=== PATIENT | female | born 1985 | race Two or more races ===

== ENCOUNTER → 2017-05-15 | Emergency (ER) | payer SELFPAY ==
[~2017-05-15] MED LIST: PREN-153 OR
== END | disposition left against medical advice (07) ==
LOC: ER 23:48
DX: R10.9 Unspecified abdominal pain (principal); Z53.21 Procedure and treatment not carried out due to patient leaving prior to being seen by health care provider

== ENCOUNTER 2017-05-16 00:03 | Observation (INO) | payer MEDICAID ==
[~2017-05-16] VITALS: Ht 157.5 cm; Wt 81.6 kg
[2017-05-16 00:52] LABS: Urine Blood 1+ /uL (Negative); Urine Specific Gravity 1.007 (1.001-1.035)
[2017-05-16 00:53] LABS: Urine WBC >100 /hpf (0 - 5)
[2017-05-16 00:54] LABS: Alcohol, Urine < 3.0 mg/dL (0-5); Amphetamine Screen, Urine NEGATIVE (NEGATIVE); Barbiturate Scree,Urine NEGATIVE (NEGATIVE); Benzodiazephine Screen, Urine NEGATIVE (NEGATIVE); Cannabinoid Screen, Urine NEGATIVE (NEGATIVE); Cocaine Screen, Urine NEGATIVE (NEGATIVE); Opiate Scree,Urine NEGATIVE (NEGATIVE); Phencyclidine Screen, Urine NEGATIVE (NEGATIVE)
[2017-05-16 00:55] LABS: Urine Bacteria 3+ /hpf (None Seen); Urine Mucus FEW (None Seen)
[2017-08-06] MEDS ORDERED: PREN-153 OR (05:23)
== END 2017-05-16 01:49 | disposition home or self-care (01) | DRG 566 ==
LOC: LDRP 00:03
PROVIDERS: ADMIT Obstetrics & Gynecology; ATTEND Obstetrics & Gynecology
DX: O26.892 Other specified pregnancy related conditions, second trimester (principal); R10.9 Unspecified abdominal pain; Z3A.27 27 weeks gestation of pregnancy
CPT/HCPCS: 59025; 80307; 81001; 81002; G0378

== ENCOUNTER 2017-08-26 16:19 | Emergency (ER) | payer MEDICAID ==
[~2017-08-26] VITALS: Ht 154.9 cm; Wt 88.5 kg
[2017-08-26 17:32] LABS: Basophils # (auto) 0.1 uL; Eosinophils # (auto) 0.1 uL; Eosinophils % (auto) 0.5 % (0.0-7.0); Hematocrit 46.1 % (36.0-46.0); Lymphocytes # (auto) 1.2 uL; Lymphocytes % (auto) 8.9 % (10.0-50.0); Mean Corpuscular Hemoglobin 28.6 pg (28.0-32.0); Mean Corpuscular Hgb Conc. 32.6 g/dL (32.0-36.0); Mean Corpuscular Volume 87.6 fL (80.0-100.0); Monocytes # (auto) 0.5 uL; Monocytes % (auto) 3.8 % (0.0-12.0); Neutrophils # (auto) 11.3 uL; Neutrophils % (auto) 85.8 % (37.0-80.0); Platelet Count (auto) 261 10^3/uL (140-450); Red Blood Cells 5.26 10^6/uL (4.0-5.20); Red Cell Distribution Width 14.6 % (11.8-14.3); White Blood Cell 13.1 10^3/uL (4.4-10.8)
[2017-08-26 17:55] LABS: Urine Bacteria NONE SEEN /hpf (None Seen); Urine Blood 2+ /uL (Negative); Urine Specific Gravity 1.007 (1.001-1.035); Urine WBC 263 /hpf (0 - 5)
[2017-08-26 17:57] LABS: Alanine Aminotransferase 52 U/L (13-56); Albumin 3.5 g/dL (3.4-5.0); Alkaline Phosphatase 138 U/L (45-117); Anion Gap 9 (5-15); Aspartate Aminotransferase 72 U/L (15-37); BUN/Creatinine Ratio 16.2; Bilirubin, Total 0.3 mg/dL (0.2-1.0); Blood Urea Nitrogen 12 mg/dL (7-18); Calcium 8.2 mg/dL (8.5-10.1); Carbon Dioxide 24 mmol/L (21-32); Chloride 105 mmol/L (98-107); GFR African American 117 mL/min; GFR Non-African American 97 mL/min; Glucose 99 mg/dL (74-106); Potassium 3.9 mmol/L (3.5-5.1); Sodium 138 mmol/L (136-145); Total Protein 7.3 g/dL (6.4-8.2)
[2017-08-26] MEDS ORDERED: cefTRIAXone 1GM/10ml IVPUSH 10 ML IV ONE (19:15)
[2017-08-26] MEDS ORDERED: FAMOTIDINE (10MG/ML) 2ML VL IV ONE (19:15)
[2017-08-26 19:53] VITALS: BP 127/67
[2017-08-26 20:22] LABS: Alcohol, Urine < 3.0 mg/dL (0-5); Amphetamine Screen, Urine NEGATIVE (NEGATIVE); Barbiturate Scree,Urine NEGATIVE (NEGATIVE); Benzodiazephine Screen, Urine NEGATIVE (NEGATIVE); Cannabinoid Screen, Urine NEGATIVE (NEGATIVE); Cocaine Screen, Urine NEGATIVE (NEGATIVE); Opiate Scree,Urine NEGATIVE (NEGATIVE); Phencyclidine Screen, Urine NEGATIVE (NEGATIVE)
== END 2017-08-26 19:57 | disposition home or self-care (01) ==
LOC: ER 16:28
DX: R06.02 Shortness of breath (principal); T50.7X5A Adverse effect of analeptics and opioid receptor antagonists, initial encounter; K29.00 Acute gastritis without bleeding; N39.0 Urinary tract infection, site not specified
CPT/HCPCS: 36415; 71046; 80053; 80307; 81001; 84484; 85025; 93005; 96374